=== PATIENT | female | born 1980 | race Caucasian/White ===

== ENCOUNTER 2021-12-23 10:36 | Outpatient (CLI) | payer OTHER, SELFPAY ==
--- NOTE | ~2021-12-23 | MR_ITS ---
EXAMINATION: MR ankle RT wo con DATE: 12/23/2021 11:22 INDICATION: Sprain of the unspecified ligament of right ankle. Right ankle pain and swelling. TECHNIQUE: Magnetic resonance imaging (MRI) of the right ankle was performed without intravenous cont rast. Sequences included sagittal PD-weighted FS FSE, sagittal PD-weighted FSE, coronal PD-weighted F S FSE, coronal PD-weighted FSE, axial PD-weighted FS FSE, and axial PD-weighted FSE. COMPARISON: None. FINDINGS: Medial ankle ligaments: There is a partial tear of superficial component of deltoid ligament. There are changes of prior spra in of the deep component of deltoid ligament characterized by heterogeneous signal and some disorgani zed fibers. Lateral ankle ligaments: There are changes of prior lateral ankle sprain. Anterior talofibular ligament demonstrates increased signal and thinning at its talar attachment. Calcaneofibular ligament is indistinct with increased s ignal intensity. Posterior talofibular ligament is normal. Anterior tibiofibular ligament is thickene d with increased signal intensity. Posterior tibiofibular ligament is normal. Tendons: There is a longitudinal split tear of peroneus brevis tendon. Peroneus longus tendon is normal. The a nterior and medial ankle tendons are normal. There is mild Achilles tendinopathy. Plantar fascia: Normal. Bones/other: Bone alignment is normal. No fracture. There is partial-thickness cartilage loss of tibiotalar joint and talonavicular joint. Fluid: There is no joint effusion. There is a 13 x 6 x 6 mm multiloculated ganglion cyst dorsal to calcaneoc uboid joint. IMPRESSION: 1. Changes of medial and lateral ankle sprains. 2. 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 3. Longitudinal split tear of peroneus brevis tendon. 4. Ganglion cyst dorsal to calcaneocuboid joint. Reviewed, dictated and finalized at location A.
== END 2021-12-23 10:37 | disposition home or self-care (01) ==
PROVIDERS: PCP Family Medicine Sports Medicine; Visit Provider Podiatrist Foot & Ankle Surgery
DX: S93.401A Sprain of unspecified ligament of right ankle, initial encounter (principal); M21.6X1 Other acquired deformities of right foot; M94.8X7 Other specified disorders of cartilage, ankle and foot; S96.811A Strain of other specified muscles and tendons at ankle and foot level, right foot, initial encounter; M67.471 Ganglion, right ankle and foot
CPT/HCPCS: 73721